=== PATIENT | female | born 1960 | race Caucasian/White ===

== ENCOUNTER 2021-07-16 13:35 | Outpatient (CLI) | payer MEDICARE, SELFPAY ==
[2021-07-16 14:02] VITALS: BP 134/92; PULSE 88; RESP 18; TEMP 36.9; O2SAT 93; BMI 29.2
[2021-07-16] MEDS: 0.9% Saline Lock 10 ML Syringe IV (14:08)
[2021-07-16 14:49] VITALS: BP 123/67; PULSE 80; RESP 16; TEMP 37; O2SAT 92
[2021-07-16 15:39] VITALS: BP 136/75; PULSE 80; RESP 16; TEMP 36.8; O2SAT 93
== END 2021-07-16 15:49 | disposition home or self-care (01) ==
LOC: MS3OUT 13:35 → MS3 13:36
PROVIDERS: PCP Family Medicine; Referring Provider Nurse Practitioner Acute Care; Visit Provider Nurse Practitioner Acute Care
DX: Z23 Encounter for immunization (principal); U07.1 COVID-19
CPT/HCPCS: J7050; M0245; Q0245; A4216

== ENCOUNTER 2021-08-23 13:07 | Outpatient (CLI) | payer OTHER, SELFPAY ==
--- NOTE | 2021-08-23 13:18 | CT_ITS ---
STUDY: LOW DOSE CT LUNG CANCER SCREENING REASON FOR EXAM: Female, 60 years old. SCREENING. The patient smoked 1 pack per day for 40 years. COPD. RADIATION DOSAGE (If Supplied By Facility): CTDIvol = ( 3.02 ) mGy, DLP = ( 99.30 ) mGycm TECHNIQUE: No contrast was administered. Low dose technique was utilized (average mAS-38 and kVp 120). 1.25 mm axial source images with a slice interval of 1.25-mm were reconstructed in lung windows. 2.5 mm axial source images with a slice interval of 2.5-mm were reconstructed in lung windows. 5.0 mm axial source images with a slice interval of 5.0-mm were reconstructed in soft tissue windows. Nodule measured using lung windows on PACS and/or independent workstation with automated measurement of minimum and maximum diameter. Nodule measurement reported as average diameter rounded to the nearest whole number. Growth is defined as an increase ins size of greater than 1.5 mm. COMPARISON: None. NODULES: No suspicious nodules are seen. Emphysema: Hyperinflation. Emphysematous changes worse in the upper lobes. Findings suggestive of scarring at the right lung apex. Aorta: Calcification of the aortic arch. Coronary arteries: Coronary artery calcification. Mild degree of linear scarring in the posterior aspect of the lingular segment of the left upper lobe. Heart: Unremarkable. Pulmonary artery: Unremarkable. Mediastinal nodes: Small benign-appearing mediastinal lymph nodes. Other chest and abdominal findings: The joint changes of the thoracic spine. CT/Low Dose CT Lung Screening IMPRESSION: Lung-RADS category 2 - Continue annual screening with LDCT in 12 months. IMPORTANT NOTES FOR USE: ACR Lung-RADS Version 1.1 Assessment Categories Release Date: 2018 Category: Coded 0-4 bases on nodule(s) with highest degree of suspicion. Negative screen is defined as categories 1 and 2; a positive screen is defined as categories 3 and 4. Category 3 and 4A nodules that are unchanged on interval CT should be coded as category 2, and individuals returned to screening in 12 months. Category 4X: Category 3 or 4 nodules with additional imaging findings that increase the suspicion of lung cancer, such as spiculation, GGN that doubles in size in 1 year, enlarged lymph notes, etc. Category Modifiers: S (significant finding unrelated to lung cancer) Electronically Signed: George Pate MD at 14:04 EST ,
== END 2021-08-23 23:59 | disposition short-term general hospital (02) ==
LOC: CT 13:13
PROVIDERS: PCP Family Medicine; Referring Provider Internal Medicine Pulmonary Disease; Visit Provider Internal Medicine Pulmonary Disease
DX: Z87.891 Personal history of nicotine dependence (principal)
CPT/HCPCS: 71271

== ENCOUNTER 2021-09-15 09:07 | Outpatient (CLI) | payer OTHER, SELFPAY | END 2021-09-15 23:59 | disposition home or self-care (01) | LOC: LAB 09:09 | PROVIDERS: PCP Family Medicine; Visit Provider Internal Medicine Pulmonary Disease | DX: J44.1 Chronic obstructive pulmonary disease with (acute) exacerbation (principal) | CPT/HCPCS: 87070; 87205 ==

== ENCOUNTER → 2021-11-22 | Outpatient (CLI) | payer OTHER, SELFPAY ==
[2021-11-22 11:40] LABS: AST(SGOT) 13 U/L (15-37); Alanine Aminotransfer ALT/SGPT 19 U/L (13-56); Albumin, Serum 3.6 g/dL (3.2-5.0); Alkaline Phosphatase 82 U/L (45-117); Bilirubin, Direct 0.08 mg/dL (0.00-0.30); Globulin 3.9 g/dL (2.2-4.2); Protein, Total 7.5 g/dL (6.4-8.2)
== END | disposition home or self-care (01) ==
PROVIDERS: PCP Family Medicine; Referring Provider Internal Medicine Pulmonary Disease; Visit Provider Internal Medicine Pulmonary Disease
DX: E88.01 Alpha-1-antitrypsin deficiency (principal)
CPT/HCPCS: 36415; 80076

== ENCOUNTER → 2024-12-10 | Outpatient (CLI) | payer MEDICARE, SELFPAY ==
--- NOTE | 2024-12-10 13:31 | BI_ITS ---
EXAM: SCRN MAMM (CAD)W/SORAYA BILAT 12/10/2024 CLINICAL HISTORY: F, Age 64 y/o , SCREENING TECHNIQUE: Bilateral screening digital breast tomosynthesis with 2D and 3D images. Computer aided detection. COMPARISON: No priors available FINDINGS: TISSUE DENSITY: The breast tissue is heterogenously dense, which may obscure small masses. The mammogram demonstrates that the patient has dense breasts. Supplemental screening with whole breast ultrasound or MRI may be considered for further evaluation. Bilateral Breast Mammographic Findings: No significant masses, calcifications or other abnormalities are identified. BI/SCRN MAMM (CAD)W/SORAYA BILAT IMPRESSION: Right Breast: BIRADS 1 NEGATIVE. Left Breast: BIRADS 1 NEGATIVE. OVERALL FINAL ASSESSMENT: BIRADS 1 NEGATIVE. RECOMMENDATION: Routine annual follow-up in 1 Year A letter with findings and recommendations will be mailed to the patient. Reading Location: [id number]
== END | disposition home or self-care (01) ==
PROVIDERS: PCP Family Medicine
DX: Z12.31 Encounter for screening mammogram for malignant neoplasm of breast (principal)
CPT/HCPCS: 77063; 77067

== ENCOUNTER → 2025-03-03 | Outpatient (CLI) | payer MEDICARE, SELFPAY ==
--- NOTE | 2025-03-03 07:36 | RDU_ITS ---
Reason For Study Reason For Study: Atherosclerosis Right Renal Artery Left Renal Artery Right renal artery ostium 144/36.4 Left renal artery ostium 236.1/58.9 RSV/EDV. PSV/EDV. Right renal artery proximal 166/49.6 Left renal artery proximal PSV/EDV PSV/EDV. 77.8/22.6 . Right renal artery mid 128.4/46.4 Left renal artery mid 98.1/32.8 PSV/EDV . PSV/EDV. Left renal artery distal 119.6/39.4 Right renal artery distal 148.4/47.4 PSV/EDV. PSV/EDV. Left RAR 4.52. Right RAR 3.18. Left Renal Parenchyma Right Renal Parenchyma Left upper pole medulla 34.1/12.7 Upper Pole Medula 28.4/10.2 PSV/EDV. PSV/EDV . Right upper pole medulla EDR 0.4 . Left upper pole medulla EDR 0.4 . Right upper pole medulla R.I. 0.64 . Left upper pole medulla R.I. 0.63 . Upper Jon Cortx 16.8/4.7 PSV/EDV. UP Cortex 16.9/6.5 PSV/EDV. Right upper pole cortex EDR 0.3 . Left upper pole cortex EDR 0.4 . Right upper pole cortex R.I. 0.72 . Left upper pole cortex R.I. 0.62 . Right lower Pole medulla 28.9/8.6 Left lower Pole medulla 37.2/9 PSV/EDV . PSV/EDV . Left lower pole medulla EDR 0.2 . Right lower pole medulla EDR 0.3 . Left lower pole medulla R.I. 0.76 . Right lower pole medulla R.I. 0.70 . Lower Pole Cortx 19.4/9 PSV/EDV. Lower Pole Cortex 18.5/6.4 PSV/EDV. Left lower pole cortex EDR 0.5 . Right lower pole cortex EDR 0.3 . Left lower pole cortex R.I. 0.54 . Right lower pole cortex R.I. 0.65 . Left Renal Hilar Right Renal Hilar LT Hilar avg 79.8/25.4 PSV/EDV . Right Hilar avg 69.5/25.4 PSV/EDV. Left hilar acceleration time 60 m/sec. Right hilar acceleration time 50 m/sec. Left Renal Dimensions Right Renal Dimensions Left kidney size 11.73 cm . Right kidney size 10.83 cm . Left cortical dimension 1.56 cm . Right cortical dimension 1.65 cm . Aorta Proximal abdominal aorta 1.82 x 1.91 cm . Proximal abdominal aorta peak systolic velocity is 52.2 cm/sec . Distal abdominal aorta 1.18 x 1.15 cm . Distal abdominal aorta peak systolic velocity is 57.6 cm/sec . VL/Renal Artery Duplex Ultrasound Interpretation Summary Right renal artery patent with normal velocities and no evidence of stenosis. Left renal artery patent with > 60% stenosis. Right renal vein patent. Left renal vein patent. Right kidney normal in size. Left kidney normal in size. Ordering Physician: Kenzie Curry Referring Physician: Heather Mock Performed By: Lizzy Rollins RVT
--- NOTE | 2025-03-03 07:36 | ART_ITS ---
Reason For Study Reason For Study: PVD Procedure A bilateral lower extremity continuous wave Doppler with analog waveform analysis,segmental pressures,and ankle brachial indexes with exercise. Left Segmental Pressures Left brachial= 115mmHg. Left posterior tibial artery = 124mmHg. Left dorsalis pedis artery = 122mmHg. Left digit = 102 mmHg. The left dorsalis pedis waveforms are triphasic. The left posterior tibial artery waveforms are triphasic. Right Segmental Pressures Right brachial= 118mmHg. Right posterior tibial artery = 123mmHg. Right dorsalis pedis artery = 110mmHg. Right digit = 99 mmHg. The right dorsalis pedis waveforms are triphasic. The right posterior tibial artery waveforms are triphasic. Indices The right ankle brachial index by the dorsalis pedis is 0.93. The right ankle brachial index by the posterior tibial artery is 1.04. The right digital-brachial index is 0.84. The right post exercise ankle brachial index is 0.72. The left ankle brachial index by the dorsalis pedis is 1.03. The left ankle brachial index by the posterior tibial artery is 1.05. The left digital-brachial index is 0.86. The left post exercise ankle brachial index is 0.84. VL/Lower Ext Art Exam w/ Exercise Interpretation Summary Right RYAN 1.04, normal. TBI and Doppler/PVR waveforms of the right leg normal a t rest. Right lower extremity with abnormal response to exercise and post exercise RYAN in the moderate category. Left RYAN 1.05, normal. TBI and Doppler/PVR waveforms of the left leg normal at rest. Left lower extremity with abnormal response to exercise and post exercise RYAN i n the moderate category. Ordering Physician: Kenzie Curry Referring Physician: Heather Mock Performed By: Lizzy Rollins RVT
== END | disposition home or self-care (01) ==
LOC: CVS 07:36
PROVIDERS: PCP Family Medicine; Referring Provider Physician Assistant; Visit Provider Physician Assistant
DX: I70.0 Atherosclerosis of aorta (principal); I73.9 Peripheral vascular disease, unspecified
CPT/HCPCS: 93924; 93975